=== PATIENT | female | born 1985 | race Caucasian/White ===

== ENCOUNTER → 2021-04-08 | Outpatient (CLI) | payer OTHER ==
[~2021-04-08] MED LIST: COLACE 100MG C100 MG PO; DESYREL 50 MG T50 MG PO; IBUPROFEN600 MG PO; NEURONTIN300 MG PO; NORCO 5-325 TA1 EACH PO
== END ==
LOC: RAD 09:02
DX: M79.672 Pain in left foot (principal)
CPT/HCPCS: 73630

== ENCOUNTER → 2021-09-22 | Outpatient (CLI) | payer OTHER | LOC: RAD 12:42 | DX: W19.XXXA Unspecified fall, initial encounter (principal) | CPT/HCPCS: 73502 ==